=== PATIENT | female | born 1950 | race Caucasian/White ===

== ENCOUNTER 2025-08-27 06:18 | Day surgery (SDC) | payer MEDICARE, BC, SELFPAY ==
[2025-08-27] VITALS (10 sets, daily range): BP systolic 135–152; BP diastolic 71–88; PULSE 66–76; RESP 15–16; TEMP 36.6; O2SAT 93–95; BMI 34.0
--- NOTE | 2025-08-27 07:10 | P.ORPRC_ITS ---
Procedure Note Date of procedure: 08/27/25 Procedure: PREOPERATIVE DIAGNOSIS: 1. Right thumb trigger digit POSTOPERATIVE DIAGNOSIS: 1. Right thumb trigger digit PROCEDURE: 1. Right thumb trigger (A1 xochilt) release SURGEON: Aman March MD. CUT OFF SAW OPERATOR PIPE BLANKS: Felecia Marcano P.A.-C. An public aid eligibility assistant was critical for this case to aid in patient positioning, tissue retraction, limb manipulation/positioning, and closure. ANESTHESIA: Local anesthetic ESTIMATED BLOOD LOSS: 0 mL TOURNIQUET: 6 min at 250 mmHg COMPLICATIONS: None INDICATIONS: The patient is a pleasant 74-year-old female who has history of right thumb pain and triggering. Symptoms did not improve with conservative management. Patient subsequently elected to proceed with surgical intervention consisting of right thumb A1 xochilt release. Prior to surgery risks and benefits were discussed with patient all questions were answered informed consent was obtained. DESCRIPTION OF PROCEDURE: Patient was seen preoperatively and operative site was marked. The subcutaneous tissues overlying the right thumb A1 xochilt were injected with combination of 1% lidocaine and 0.5% bupivacaine. Patient was then brought to the operating room placed in supine position on the OR table. A tourniquet was placed on the patie nt's right arm and right upper extremity was prepped and draped in usual sterile fashion. A surgical time-out was performed confirming patient name, procedure, and location. Operative extremity was then elevated, and tourniquet was inflated to 225 mmHg. A skin incision measuring approximately 1 cm was made longitudinally over the A1 xochilt of the right thumb. Blunt dissection was used to dissect through subcutaneous tissues. The underlying flexor tendons and A1 xochilt were identified and retractors were used to protect the neurovascular structures. The A1 xochilt was then released using a tenotomy scissor. After complete release of the A1 xochilt, the patient was asked to flex and extend their thumb, and no active triggering was noted. Tourniquet was then released and hemostasis was achieved with bipolar electrocautery. Total tourniquet time was 6 minutes. Wound was the irrigated with normal saline. Skin incision was closed with 4-0 nylon horizontal mattress sutures, and a sterile dressing was applied. Patient was then transferred to the recovery room in stable condition. POSTOPERATIVE PLAN: 1. Patient will be discharged to home day of surgery. 2. They were given instructions for wound care and finger range of motion exercises. 3. Return to the clinic for follow-up evaluation in 10-14 days for wound check and suture removal.
--- NOTE | 2025-08-27 07:10 | W.PM.H&PU ---
History & Physical Update History & Physical Update H&P Reviewed and patient assessed: No changes noted
[2025-08-27] MEDS: BUPIVACAINE 0.5% 30 ML INJECTION (07:12)
[2025-08-27] MEDS: ETHYL CHLORIDE 1 APPLICATION 1 APPLIC TOPICAL (07:12)
[2025-08-27] MEDS: LIDOCAINE 1% MDV INJECTION (07:12)
== END 2025-08-27 07:59 | disposition home or self-care (01) ==
LOC: OR 06:19
PROVIDERS: PCP Internal Medicine; Visit Provider Orthopaedic Surgery
PROC: (CPT 26055; principal; 2025-08-27 07:15)
DX: M65.311 Trigger thumb, right thumb (principal)
CPT/HCPCS: 26055; J2003; J0665